=== PATIENT | female | born 1945 | race African-American/Black ===

== ENCOUNTER 2019-08-18 06:49 | Inpatient (IN) ==
[2019-08-18] MEDS ORDERED: SODIUM CHLORIDE 0.9% 1,000 ML IV STA (07:12)
[2019-08-18] MEDS ORDERED: DILTIAZEM 50 MG/10 ML VIAL IV STA (07:12)
[2019-08-18] MEDS ORDERED: dilTIAZem Drip 125 MG/125 ML PREMIX IV SCH (07:30)
[2019-08-18 08:08] LABS: Basophils % 0.3 % (0.0-0.8); Eosinophils # 0.1 10*3/uL (0.0-0.87); Eosinophils % 1.6 % (0.00-10.9); Hematocrit 32.7 VOL% (35.7-47.0); Immature Granulocytes % 0.3 %; Immature Granulocytes Absolute 0.02 #; Lymphocytes # 0.9 10*3/uL (1.4-4.0); Lymphocytes % 15.4 % (21.3-54.2); Mean Corpuscular HGB Conc 30.6 GM/DL (32-36); Mean Corpuscular Volume 93.4 FL (87-102); Mean Platelet Volume 10.4 FL (9.6-12.0); Monocytes % 13.6 % (1.7-12.7); Neutrophils % 68.8 % (38.7-73.9); Platelet Count 404 T/CUMM (130-400); Red Cell Distribution Width 12.1 % (9.3-17.3); White Blood Count 5.8 T/CUMM (4-12)
[2019-08-18 08:21] LABS: Albumin 3.6 G/DL (3.4-5.0); Bilirubin,Total 0.9 MG/DL (0.2-1.0); Free T4 (Free Thyroxine) 1.43 NG/DL (0.76-1.46); Thyroid Stimulating Hormone 1.16 uIU/ml (0.358-3.74); Total Protein 7.9 G/DL (6.4-8.3)
[2019-08-18 08:32] LABS: Apearance,Urine Slightly Hazy (Clear); Bacteria,Urine Occasional /HPF (Few); Bilirubin,Urine Negative (Negative); Blood, Urine Small mg/dL (Negative); Glucose,Urine (UA) Negative (Negative); Hyaline Casts,Urine 5 /LPF (0-3); Ketones,Urine 5 mg/dL (Negative); Mucus,Urine Occasional /LPF (Occasional); Nitrite,Urine Negative (Negative); Protein,Urine Negative; RBC,Urine 1 /HPF (0-4); Squamous Epithelial Cell,Urine Occasional /HPF (0-10); Urine Color Yellow (Yellow); Urine Specific Gravity 1.015 (1.001-1.035); Urine Urobilinogen < 2.0 EU/DL (0.2-1.0); WBC,Urine 2 /HPF (0-6)
[2019-08-18] MEDS ORDERED: ALBUTEROL/IPRATROPIUM 3 ML NEB RESP TX PRN (09:15)
[2019-08-18] MEDS ORDERED: DOCUSATE SODIUM 100 MG CAPSULE PO PRN (09:15)
[2019-08-18] MEDS ORDERED: LACTULOSE 20 GM/30 ML UDCUP PO PRN (09:15)
[2019-08-18] MEDS ORDERED: ONDANSETRON 4 MG/2 ML VIAL IV PRN (09:15)
[2019-08-18] MEDS: SODIUM CHLORIDE 0.9% 1,000 ML IV SCH (11:38)
[2019-08-18] MEDS: ENOXAPARIN 30 MG/0.3 ML SYRINGE SUBCUT SCH (11:38)
[2019-08-18] MEDS: ACETAMINOPHEN 325 MG TABLET PO PRN (11:39)
[2019-08-19] MEDS: SODIUM CHLORIDE 0.9% 1,000 ML IV SCH ×4 (02:04→17:29)
[2019-08-19] MEDS: ACETAMINOPHEN 325 MG TABLET PO PRN (06:16)
[2019-08-19 06:20] LABS: Basophils % 0.6 % (0.0-0.8); Eosinophils # 0.2 10*3/uL (0.0-0.87); Eosinophils % 2.9 % (0.00-10.9); Hemoglobin 7.7 GM/DL (12.0-16.0); Immature Granulocytes % 0.4 %; Immature Granulocytes Absolute 0.02 #; Lymphocytes # 0.7 10*3/uL (1.4-4.0); Lymphocytes % 13.6 % (21.3-54.2); Mean Corpuscular HGB Conc 30.8 GM/DL (32-36); Mean Corpuscular Volume 94.7 FL (87-102); Mean Platelet Volume 10.3 FL (9.6-12.0); Monocytes % 15.4 % (1.7-12.7); Neutrophils % 67.1 % (38.7-73.9); Platelet Count 313 T/CUMM (130-400); Red Blood Count 2.64 MC/CUMM (3.8-5.5); Red Cell Distribution Width 12.1 % (9.3-17.3); White Blood Count 5.4 T/CUMM (4-12)
[2019-08-19 06:43] LABS: Albumin 2.8 G/DL (3.4-5.0); Bilirubin,Total 0.8 MG/DL (0.2-1.0); Calcium 9.1 MG/DL (8.5-10.1); Osmolality,Calculated 288.1 MOS/KG (273-304); Risk Ratio 3.09; Total Protein 6.7 G/DL (6.4-8.3); VLDL CHOLESTEROL 24.4 MG/DL
[2019-08-19] MEDS: LISINOPRIL/HCTZ 20-25 MG TABLET PO SCH (09:00)
[2019-08-19] MEDS: amLODIPine 10 MG TABLET PO SCH (09:00)
[2019-08-19] MEDS: ENOXAPARIN 30 MG/0.3 ML SYRINGE SUBCUT SCH (09:00)
[2019-08-19] MEDS: PANTOPRAZOLE 40 MG TABLET PO SCH (09:00)
[2019-08-19] MEDS ORDERED: SIMVASTATIN 10 MG TABLET PO SCH (17:00)
[2019-08-19] MEDS ORDERED: VANCOMYCIN INJ 500 MG in SODIUM CHLORIDE 0.9% 250 ML IV SCH (18:00)
[2019-08-20] MEDS: ACETAMINOPHEN 325 MG TABLET PO PRN (01:51)
[2019-08-20] MEDS: SODIUM CHLORIDE 0.9% 1,000 ML IV SCH (05:18)
[2019-08-20 06:06] LABS: Basophils % 0.2 % (0.0-0.8); Eosinophils # 0.1 10*3/uL (0.0-0.87); Eosinophils % 2.7 % (0.00-10.9); Hematocrit 22.6 VOL% (35.7-47.0); Immature Granulocytes % 0.2 %; Immature Granulocytes Absolute 0.01 #; Lymphocytes # 0.7 10*3/uL (1.4-4.0); Lymphocytes % 16.1 % (21.3-54.2); Mean Corpuscular Volume 92.2 FL (87-102); Mean Platelet Volume 10.6 FL (9.6-12.0); Neutrophils % 66.8 % (38.7-73.9); Platelet Count 243 T/CUMM (130-400); Red Blood Count 2.45 MC/CUMM (3.8-5.5); White Blood Count 4.4 T/CUMM (4-12)
[2019-08-20 06:18] LABS: Albumin 2.5 G/DL (3.4-5.0); Bilirubin,Total 0.7 MG/DL (0.2-1.0); Calcium 8.4 MG/DL (8.5-10.1); Osmolality,Calculated 286.8 MOS/KG (273-304); Total Protein 6.1 G/DL (6.4-8.3)
[2019-08-20] MEDS: LISINOPRIL/HCTZ 20-25 MG TABLET PO SCH (09:48)
[2019-08-20] MEDS: amLODIPine 10 MG TABLET PO SCH (09:58)
[2019-08-20] MEDS: PANTOPRAZOLE 40 MG TABLET PO SCH (09:58)
[2019-08-20] MEDS: ENOXAPARIN 30 MG/0.3 ML SYRINGE SUBCUT SCH (09:59)
[2019-08-20 13:04] VITALS: BP 120/62
[2019-08-20] MEDS ORDERED: VANCOMYCIN INJ 500 MG in SODIUM CHLORIDE 0.9% 100 ML IV SCH (18:00)
== END 2019-08-20 14:58 | disposition home or self-care (01) | DRG 683 ==
LOC: EDUNIT# → EDBD → N.ED 06:49 → N.EDINP 09:15 → N.3E 15:53
PROVIDERS: ADMIT Emergency Medicine; ATTEND Emergency Medicine